=== PATIENT | male | born 1985 | race Caucasian/White ===

== ENCOUNTER 2019-11-09 13:24 | Emergency (ER) | payer SELFPAY ==
[2019-11-09 13:32] VITALS: BP 146/92; PULSE 112; TEMP 100; BMI 35.3
[2019-11-09] MEDS ORDERED: SODIUM CHLORIDE 0.9% 500 ML INFUS.BAG IV ONE ×3 (13:59→19:32)
[2019-11-09] MEDS ORDERED: ONDANSETRON 4 MG/2 ML VIAL IVPUSH ONE (13:59)
--- NOTE | 2019-11-09 14:01 | PDOC ---
History of Present Illness - General Chief Complaint: Nausea/Vomiting Stated Complaint: VOMITING Time Seen by Provider: 11/09/19 13:42 History Source: Patient Exam Limitations: No Limitations - History of Present Illness Initial Comments: 11/09/19 14:05 34-year-old male with history of opiate dependence, admits to using approximately 4 bags of heroin intranasally daily over the past 5 years, occasional marijuana use, daily Xanax use. Presents complaining of nonbloody diarrhea with nausea x 4 days. Inability to tolerate p.o. Denies chest pain, shortness of breath, vomiting, abdominal pain, recent antibiotic use, recent travel, known sick contacts, urinary complaints. Denies cocaine or alcohol use. ROS: as above PE: GENERAL: Somewhat disheveled, NAD HEAD: NCAT EYES: Pupils equal, round and reactive to light, sclera anicteric, conjunctiva clear ENT: pharynx: no erythema, Mild exudate noted, uvula midline NECK: supple, no LAD CHEST: nontender RESP: clear, no w/r/r CARDIO: rrr, no m/g/r ABD: +BS, soft, nontender, non distended BACK: no midline spinal ttp, no CVAT EXTREMITIES: Normal range of motion, no edema NEUROLOGICAL: Normal speech, normal gait SKIN: Warm, Dry 11/09/19 20:00 Is this a multiple visit Asthma Patient?: No Past History - Medical History Allergies/Adverse Reactions: Allergies Allergy/AdvReac Type Severity Reaction Status Date / Time No Known Allergies Allergy Verified 11/09/19 13:27 Home Medications: Ambulatory Orders No Home Medications 03/03/12 Amoxicillin 875 mg PO BID #20 tablet 11/09/19 Ibuprofen 600 mg PO Q6H #20 tablet 11/09/19 Anemia: No Asthma: No Cancer: No Cardiac Disorders: No CVA: No COPD: No CHF: No Dementia: No Diabetes: No GI Disorders: No Disorders: No HTN: No Hypercholesterolemia: No Kidney Stones: No Liver Disease: No Seizures: No Thyroid Disease: No - Surgical History Abdominal Surgery: No Appendectomy: No Cardiac Surgery: No Cholecystectomy: No Lung Surgery: No Neurologic Surgery: No Orthopedic Surgery: No - Reproductive History Testicular Surgery: No - Psycho-Social/Smoking History Smoking History: Current every day smoker Have you smoked in the past 12 months: Yes Number of Cigarettes Smoked Daily: 5 Information on smoking cessation initiated: Yes 'Breaking Loose' booklet given: 08/19/12 - Substance Abuse Hx (Audit-C & DAST Scrn) How often the patient has a drink containing alcohol: Never Score: In Men: 4 or > Positive; In Women: 3 or > Positive: 0 Screen Result (Pos requires Nsg. Audit-10AR): Negative In the last yr the pt used illegal drug/Rx for NonMed reason: Yes Score: Yes response is considered Positive: 1 Screen Result (Positive result requires Nsg. DAST-10): Positive *Physical Exam - Vital Signs Last Vital Signs Temp Pulse Resp BP Pulse Ox 100 F H 112 H 20 146/92 99 11/09/19 13:27 11/09/19 13:27 11/09/19 13:27 11/09/19 13:27 11/09/19 13:27 ED Treatment Course - LABORATORY CBC & Chemistry Diagram: 11/09/19 15:20 11/09/19 18:20 Medical Decision Making - Medical Decision Making 11/09/19 14:08 34-year-old male with history of opiate dependence, admits to using approxima tely 4 bags of heroin intranasally daily over the past 5 years, occasional marijuana use, daily Xanax use. Presents complaining of nonbloody diarrhea with nausea x 4 days. Inability to tolerate p.o. Denies chest pain, shortness of breath, vomiting, abdominal pain, recent antibiotic use, recent travel, known sick contacts, urinary complaints. Denies cocaine or alcohol use. IVF aniemetic labs, UA cxr, ecg covid swab 11/09/19 19:58 Initial creatinine 1.6 after 2 L creatinine improved to 1.4 Patient complains of throat pain, on exam tonsillar exudate is noted, no swelling or erythema, no lymphadenopathy Will send rapid strep IV Toradol and IVF (3rd liter) ordered re assess 11/09/19 20:34 feels better after 3L of NS, IV toradol strep neg rx for amoxicillin for tonsillitis rpt HR 86 patient not interested in detox covid test pending no vomiting in the ED return precautions discussed 11/09/19 20:39 Discharge - Discharge Information Problems reviewed: Yes Clinical Impression/Diagnosis: Tonsillitis Vomiting Qualifiers: Vomiting type: unspecified Vomiting Intractability: unspecified Nausea presence: with nausea Qualified Code(s): R11.2 - Nausea with vomiting, un specified Condition: Stable Disposition: HOME - Admission No - Additional Discharge Information Prescriptions: Amoxicillin 875 mg PO BID #20 tablet - Follow up/Referral - Patient Discharge Instructions Additional Instructions: take amoxicillin and ibuprofen as directed you are advised to go to detox for opiate and benzo abuse return to ED if worsening pain, fever, chills or any concerning symptom - Post Discharge Activity
[2019-11-09 15:29] LABS: BASO % 0.6 % (0-2.0); HEMATOCRIT 44.2 % (35.4-49); HEMOGLOBIN 15.3 GM/dL (11.7-16.9); LYMPH % 16.2 % (8-40); MCHC 34.6 g/dl (32.0-35.9); MEAN CELL VOLUME 92.6 fl (80-96); MEAN PLT VOLUME 10.5 fl (7.5-11.1); MONO % 8.5 % (3.8-10.2); NEUT % 74.7 % (42.8-82.8); PLATELET COUNT 225 K/MM3 (134-434); RBC 4.78 M/mm3 (4.00-5.60); RDW 14.3 % (11.9-15.9)
[2019-11-09 16:11] LABS: ALBUMIN 4.8 g/dl (3.4-5.0); BLOOD UREA NITROGEN 36.6 mg/dL (7-18); CALCIUM 10.2 mg/dL (8.5-10.1); CREATININE 1.6 mg/dL (0.55-1.3); TOT PROT 9.2 g/dl (6.4-8.2)
[2019-11-09 17:04] LABS: EPI CELLS >36 /uL (0-25.1); HYALINE CASTS 3 /uL (0-3.1); PH,URINE 5.5 (5.0-8.0); URINE APPEARANCE CLOUDY; URINE BACTERIA 139 /uL (0-1359); URINE BILIRUBIN NEGATIVE (NEGATIVE); URINE COLOR DK YELLOW; URINE GLUCOSE (UA) NEGATIVE (NEGATIVE); URINE KETONE TRACE (NEGATIVE); URINE LEUK ESTERASE NEGATIVE (NEGATIVE); URINE NITRITE NEGATIVE (NEGATIVE); URINE PROTEIN 1+ (NEGATIVE); URINE RBC 18 /uL (0-23.9); URINE WBC 11 /uL (0-25.8)
[2019-11-09 18:47] LABS: BLOOD UREA NITROGEN 33.4 mg/dL (7-18); CALCIUM 9.3 mg/dL (8.5-10.1); CREATININE 1.4 mg/dL (0.55-1.3); POTASSIUM 4.2 mmol/L (3.5-5.1)
[2019-11-09] MEDS ORDERED: KETOROLAC TROMETHAMINE 30 MG/1 ML VIAL IVPUSH ONE (19:32)
[2019-11-09] MEDS ORDERED: KETOROLAC TROMETHAMINE 30 MG/1 ML VIAL ONE (19:40)
--- NOTE | 2019-11-10 10:41 | EKG ---
Test Reason : Blood Pressure : / mmHG Vent. Rate : 079 BPM Atrial Rate : 079 BPM P-R Int : 164 ms QRS Dur : 086 ms QT Int : 370 ms P-R-T Axes : 070 066 057 degrees QTc Int : 424 ms NORMAL SINUS RHYTHM MODERATE VOLTAGE CRITERIA FOR LVH, MAY BE NORMAL VARIANT NONSPECIFIC ST ABNORMALITY ABNORMAL ECG NO PREVIOUS ECGS AVAILABLE Confirmed by CORNELIO FISHMAN MD ([id number]) on 11/10/2019 10:41:37 AM Referred By: Confirmed By:CORNELIO FISHMAN MD
== END 2019-11-09 21:04 | disposition home or self-care (01) ==
LOC: JER 13:24
PROC: 3E0333Z Introduction of Anti-inflammatory into Peripheral Vein, Percutaneous Approach (ICD-10-PCS; principal; 2019-11-09)
PROC: 3E033GC Introduction of Other Therapeutic Substance into Peripheral Vein, Percutaneous Approach (ICD-10-PCS; 2019-11-09)
DX: R11.2 Nausea with vomiting, unspecified (principal)
CPT/HCPCS: 36415; 71046-TC-FY; 80048; 80053; 81003; 83690; 85025; 87070; 87077; 87880; 93005; 93010; 99285-25; U0003

== ENCOUNTER 2021-06-10 10:30 | Inpatient (IN) | payer OTHER ==
[2021-06-10] MEDS ORDERED: NICOTINE 10 MG CARTRIDGE (INHALER) IH PRN (10:55)
[2021-06-10] MEDS ORDERED: MAGNESIUM CITRATE 300 ML BOTTLE PO PRN (10:55)
[2021-06-10] MEDS ORDERED: ACETAMINOPHEN 325 MG TABLET (FP) PO PRN ×2 (10:55)
[2021-06-10] MEDS ORDERED: LOPERAMIDE HCL 2 MG CAPSULE PO PRN (10:55)
[2021-06-10] MEDS ORDERED: BUPRENORPHINE HCL 150 MCG, BUPRENORPHINE HCL 75 MCG BC PRN (10:55)
[2021-06-10] MEDS ORDERED: IBUPROFEN 400 MG TABLET (FP) PO PRN (10:55)
[2021-06-10] MEDS ORDERED: MAGNESIUM HYDROX 2400MG/30ML ORAL SUSPENSION 30 ML CUP PO PRN (10:55)
[2021-06-10] MEDS ORDERED: BISMUTH SUBSALICYLATE 262 MG/15 ML BTL PO PRN (10:55)
[2021-06-10] MEDS ORDERED: cloNIDine HCL 0.1 MG TABLET PO ONE (10:55)
[2021-06-10] MEDS ORDERED: MAG HYDROX/AL HYDROX/SIMETH 30 ML UNIT-DOSE CUP PO PRN (10:55)
[2021-06-10] MEDS ORDERED: DICYCLOMINE HCL 10 MG CAPSULE PO PRN (10:55)
[2021-06-10] MEDS ORDERED: BUPRENORPHINE HCL 150 MCG, BUPRENORPHINE HCL 75 MCG BC ONE (10:55)
[2021-06-10] MEDS ORDERED: BENZOCAINE/MENTHOL (CHLORASEPTIC ) LOZENGE MM PRN (10:55)
[2021-06-10] MEDS ORDERED: BUPRENORPHINE HCL 75 MCG FILM BC ONE (11:17)
[2021-06-10] MEDS ORDERED: BUPRENORPHINE HCL 150 MCG FILM BC ONE (11:17)
[2021-06-10 11:26] VITALS: BMI 30.7
[2021-06-10] MEDS: NICOTINE 14 MG/24 HOURS TOPICAL PATCH TD SCH (12:18)
[2021-06-10] MEDS: PRENATAL VITAMINS W/ FOLIC ACID TABLET (FP) PO SCH (12:19)
[2021-06-10] MEDS: diazePAM 5 MG TABLET PO PRN ×2 (14:12→22:50)
[2021-06-10] MEDS: METHOCARBAMOL 500 MG TABLET PO PRN ×2 (14:12→22:49)
[2021-06-10] MEDS: hydrOXYzine PAMOATE 25 MG CAPSULE (FP) PO SCH ×3 (14:26→22:50)
[2021-06-10 16:58] LABS: HEMATOCRIT 40.8 % (35.4-49); HEMOGLOBIN 13.8 GM/dL (11.7-16.9); MCH 30.8 pg (25.7-33.7); MCHC 33.9 g/dl (32.0-35.9); MEAN PLT VOLUME 10.5 fl (7.5-11.1); PLATELET COUNT 188 10^3/uL (134-434); RBC 4.48 M/mm3 (4.00-5.60); RDW 13.2 % (11.9-15.9); WHITE BLOOD COUNT 11.5 K/mm3 (4.0-10.0)
[2021-06-10 17:05] LABS: ALBUMIN 4.1 g/dl (3.4-5.0); CALCIUM 9.7 mg/dL (8.5-10.1)
[2021-06-10 17:07] LABS: BLOOD UREA NITROGEN 29.9 mg/dL (7-18)
[2021-06-10 17:09] LABS: CREATININE 1.3 mg/dL (0.55-1.3)
[2021-06-10 17:11] LABS: BILIRUBIN,TOTAL 0.6 mg/dL (0.2-1); TOT PROT 7.6 g/dl (6.4-8.2)
[2021-06-10] MEDS: THIAMINE HCL 100 MG TABLET (FP) PO SCH (22:50)
[2021-06-10] MEDS: MELATONIN 5 MG TABLETS PO SCH (23:24)
[2021-06-11] MEDS ORDERED: BUPRENORPHINE HCL 150 MCG, BUPRENORPHINE HCL 75 MCG BC PRN
[2021-06-11] MEDS: BUPRENORPHINE HCL 150 MCG, BUPRENORPHINE HCL 75 MCG BC SCH ×2 (05:44→17:56)
[2021-06-11] MEDS ORDERED: BUPRENORPHINE HCL 150 MCG FILM BC ONE ×2 (05:44→17:47)
[2021-06-11] MEDS ORDERED: BUPRENORPHINE HCL 75 MCG FILM BC ONE ×2 (05:44→17:48)
[2021-06-11] MEDS: hydrOXYzine PAMOATE 25 MG CAPSULE (FP) PO SCH ×5 (05:45→22:25)
[2021-06-11] MEDS: NICOTINE 14 MG/24 HOURS TOPICAL PATCH TD SCH (10:28)
[2021-06-11] MEDS: PRENATAL VITAMINS W/ FOLIC ACID TABLET (FP) PO SCH (10:28)
[2021-06-11] MEDS: diazePAM 5 MG TABLET PO PRN ×2 (10:28→22:25)
[2021-06-11] MEDS: POTASSIUM CHLORIDE TABS 20 MEQ TABLET.ER (FP) PO SCH ×2 (10:28→22:25)
[2021-06-11] MEDS: MELATONIN 5 MG TABLETS PO SCH (22:25)
[2021-06-11] MEDS: THIAMINE HCL 100 MG TABLET (FP) PO SCH (22:25)
[2021-06-12] MEDS: hydrOXYzine PAMOATE 25 MG CAPSULE (FP) PO SCH ×5 (06:20→22:26)
[2021-06-12] MEDS: ONDANSETRON *ODT* 4 MG TABLET SL PRN ×2 (06:22→06:23)
[2021-06-12] MEDS: BUPRENORPHINE HCL 450 MCG FILM BC SCH ×2 (06:23→18:02)
[2021-06-12] MEDS ORDERED: TRIMETHOBENZAMIDE HCL 200MG/2ML INJ IM PRN (07:17)
[2021-06-12] MEDS: cloNIDine HCL 0.1 MG TABLET PO PRN (07:51)
[2021-06-12] MEDS: METHOCARBAMOL 500 MG TABLET PO PRN ×2 (10:23→22:28)
[2021-06-12] MEDS: POTASSIUM CHLORIDE TABS 20 MEQ TABLET.ER (FP) PO SCH ×2 (10:24→22:26)
[2021-06-12] MEDS: PRENATAL VITAMINS W/ FOLIC ACID TABLET (FP) PO SCH (10:24)
[2021-06-12] MEDS: NICOTINE 14 MG/24 HOURS TOPICAL PATCH TD SCH (10:24)
[2021-06-12] MEDS: diazePAM 5 MG TABLET PO PRN (10:24)
[2021-06-12 14:12] LABS: SARS-CoV-2 NAA Not Detected (Not Detected)
[2021-06-12] MEDS: THIAMINE HCL 100 MG TABLET (FP) PO SCH (22:26)
[2021-06-12] MEDS: MELATONIN 5 MG TABLETS PO SCH (22:26)
[2021-06-13] MEDS: hydrOXYzine PAMOATE 25 MG CAPSULE (FP) PO SCH ×4 (05:33→17:55)
[2021-06-13] MEDS: BUPRENORPHINE/NALOXONE 4 MG/1 MG FILM PACKET SL SCH ×2 (05:34→17:52)
[2021-06-13] MEDS: cloNIDine HCL 0.1 MG TABLET PO PRN (08:19)
[2021-06-13] MEDS: NICOTINE 14 MG/24 HOURS TOPICAL PATCH TD SCH (10:14)
[2021-06-13] MEDS: PRENATAL VITAMINS W/ FOLIC ACID TABLET (FP) PO SCH (10:14)
[2021-06-13] MEDS ORDERED: diazePAM 5 MG TABLET PO SCH (10:45)
[2021-06-13 11:28] LABS: CALCIUM 9.5 mg/dL (8.5-10.1)
[2021-06-13 11:29] LABS: ALBUMIN 4.2 g/dl (3.4-5.0); BLOOD UREA NITROGEN 15.7 mg/dL (7-18)
[2021-06-13 11:32] LABS: CREATININE 1.1 mg/dL (0.55-1.3)
[2021-06-13 11:33] LABS: BILIRUBIN,TOTAL 0.6 mg/dL (0.2-1); TOT PROT 7.7 g/dl (6.4-8.2)
[2021-06-13 17:45] VITALS: BP 113/82; PULSE 83; TEMP 98
[2021-06-13] MEDS: ONDANSETRON *ODT* 4 MG TABLET SL PRN (17:55)
[2021-06-14] MEDS ORDERED: BUPRENORPHINE/NALOXONE 8 MG/2 MG FILM PACKET SL ONE (06:00)
== END 2021-06-13 20:40 | disposition home or self-care (01) | DRG 773 ==
LOC: YASAS 10:30 → Y3N 11:02
PROVIDERS: ADMIT Allergy & Immunology; ATTEND Allergy & Immunology
PROC: HZ2ZZZZ Detoxification Services for Substance Abuse Treatment (ICD-10-PCS; principal; 2021-06-10)
DX: F11.23 Opioid dependence with withdrawal (principal); F14.20 Cocaine dependence, uncomplicated; F13.20 Sedative, hypnotic or anxiolytic dependence, uncomplicated; F17.210 Nicotine dependence, cigarettes, uncomplicated; F41.1 Generalized anxiety disorder; F32.A Depression, unspecified; R79.89 Other specified abnormal findings of blood chemistry
CPT/HCPCS: 36415; 80053; 85027; 86780; 87811; 93005; 93010; C9803-CS; J0735; Q0162; U0003; U0005

== ENCOUNTER 2021-11-05 02:10 | Emergency (ER) | payer OTHER ==
[2021-11-05 06:23] LABS: ALBUMIN 4.6 g/dl (3.4-5.0); ALK PHOS 74 U/L (45-117); BILIRUBIN,TOTAL 0.8 mg/dL (0.2-1); BLOOD UREA NITROGEN 24.7 mg/dL (7-18); CALCIUM 10.2 mg/dL (8.5-10.1); CHLORIDE 92 mmol/L (98-107); CO2 36 mmol/L (21-32); CREATININE 1.5 mg/dL (0.55-1.3); GLUCOSE,RANDOM 143 mg/dL (74-106); LIPASE 130 U/L (73-393); MAGNESIUM 2.2 mg/dL (1.8-2.4); SGOT/AST 24 U/L (15-37); SGPT/ALT 38 U/L (13-61); SODIUM 137 mmol/L (136-145); TOT PROT 8.7 g/dl (6.4-8.2)
[2021-11-05 07:05] LABS: BASO % 0.4 % (0-2.0); EOS % 0.3 % (0-4.5); HEMATOCRIT 44.9 % (35.4-49); HEMOGLOBIN 15.3 GM/dL (11.7-16.9); MCH 30.3 pg (25.7-33.7); MCHC 34.1 g/dl (32.0-35.9); MEAN CELL VOLUME 88.9 fl (80-96); MEAN PLT VOLUME 9.9 fl (7.5-11.1); MONO % 6.1 % (3.8-10.2); NEUT % 72.2 % (42.8-82.8); PLATELET COUNT 256 10^3/uL (134-434); RBC 5.05 M/mm3 (4.00-5.60); RDW 14.3 % (11.9-15.9); WHITE BLOOD COUNT 12.1 K/mm3 (4.0-10.0)
[2021-11-05 07:09] LABS: ACTIVATED PTT 33.9 SECONDS (25.2-36.5); INR 1.08 (0.83-1.09); PROTHROMBIN TIME (PATIENT) 12.4 SEC (9.7-13.0)
[2021-11-05 08:17] LABS: EPI CELLS 22 /uL (0-25.1); HYALINE CASTS 3 /uL (0-3.1); PH,URINE 6.5 (5.0-8.0); URINE APPEARANCE CLEAR; URINE BACTERIA 38 /uL (0-1359); URINE BILIRUBIN 1+ (NEGATIVE); URINE COLOR DK YELLOW; URINE GLUCOSE (UA) NEGATIVE (NEGATIVE); URINE KETONE 1+ (NEGATIVE); URINE LEUK ESTERASE NEGATIVE (NEGATIVE); URINE NITRITE NEGATIVE (NEGATIVE); URINE PROTEIN 1+ (NEGATIVE); URINE RBC 19 /uL (0-23.9); URINE WBC 8 /uL (0-25.8)
== END 2021-11-05 06:30 | disposition short-term general hospital (02) ==
LOC: JER 02:10
DX: F11.23 Opioid dependence with withdrawal (principal); R11.2 Nausea with vomiting, unspecified; E86.0 Dehydration
CPT/HCPCS: 36415; 71250-TC; 74176-TC; 80053; 81003; 83605; 83690; 83735; 84484; 85025; 85610; 85730; 87086; 93005; 93010; 99285-25

== ENCOUNTER 2021-11-05 08:46 | Inpatient (IN) | payer OTHER ==
[2021-11-05 09:26] VITALS: BMI 28.0
[2021-11-05] MEDS ORDERED: MAGNESIUM CITRATE 300 ML BOTTLE PO PRN (09:32)
[2021-11-05] MEDS ORDERED: NICOTINE 10 MG CARTRIDGE (INHALER) IH PRN (09:32)
[2021-11-05] MEDS ORDERED: BISMUTH SUBSALICYLATE 524 MG/30 ML PO PRN (09:32)
[2021-11-05] MEDS ORDERED: BUPRENORPHINE HCL 150 MCG, BUPRENORPHINE HCL 75 MCG BC PRN (09:32)
[2021-11-05] MEDS ORDERED: IBUPROFEN 600 MG TABLET (FP) PO PRN (09:32)
[2021-11-05] MEDS ORDERED: IBUPROFEN 400 MG TABLET (FP) PO PRN (09:32)
[2021-11-05] MEDS ORDERED: LOPERAMIDE HCL 2 MG CAPSULE PO PRN (09:32)
[2021-11-05] MEDS ORDERED: NALOXONE HCL (KLOXXADO) 8 MG SPRAY NS PRN (09:32)
[2021-11-05] MEDS ORDERED: DICYCLOMINE HCL 10 MG CAPSULE PO PRN (09:32)
[2021-11-05] MEDS ORDERED: BENZOCAINE/MENTHOL (CHLORASEPTIC ) LOZENGE MM PRN (09:32)
[2021-11-05] MEDS ORDERED: METHOCARBAMOL 500 MG TABLET PO PRN (09:32)
[2021-11-05] MEDS ORDERED: MAG HYDROX/AL HYDROX/SIMETH 30 ML UNIT-DOSE CUP PO PRN (09:32)
[2021-11-05] MEDS ORDERED: MAGNESIUM HYDROX 2400MG/30ML ORAL SUSPENSION 30 ML CUP PO PRN (09:32)
[2021-11-05] MEDS ORDERED: ACETAMINOPHEN 325 MG TABLET (FP) PO PRN ×2 (09:32)
[2021-11-05] MEDS ORDERED: BUPRENORPHINE HCL 150 MCG FILM BC ONE (10:12)
[2021-11-05] MEDS ORDERED: BUPRENORPHINE HCL 75 MCG FILM BC ONE (10:12)
[2021-11-05] MEDS ORDERED: BUPRENORPHINE HCL 150 MCG, BUPRENORPHINE HCL 75 MCG BC ONE (10:15)
[2021-11-05] MEDS ORDERED: cloNIDine HCL 0.1 MG TABLET PO ONE (10:15)
[2021-11-05] MEDS: hydrOXYzine PAMOATE 25 MG CAPSULE (FP) PO SCH ×4 (12:25→23:01)
[2021-11-05] MEDS: PRENATAL VITAMINS W/ FOLIC ACID TABLET (FP) PO SCH (12:26)
[2021-11-05] MEDS: ONDANSETRON *ODT* 4 MG TABLET SL PRN (12:29)
[2021-11-05] MEDS: NICOTINE 14 MG/24 HOURS TOPICAL PATCH TD SCH (12:31)
[2021-11-05] MEDS: cloNIDine HCL 0.1 MG TABLET PO PRN ×2 (18:15→23:01)
[2021-11-05] MEDS: diazePAM 5 MG TABLET PO PRN (23:01)
[2021-11-05] MEDS: MELATONIN 5 MG TABLETS PO SCH (23:01)
[2021-11-05] MEDS: THIAMINE HCL 100 MG TABLET (FP) PO SCH (23:02)
[2021-11-06] MEDS ORDERED: BUPRENORPHINE HCL 150 MCG, BUPRENORPHINE HCL 75 MCG BC PRN
[2021-11-06] MEDS: hydrOXYzine PAMOATE 25 MG CAPSULE (FP) PO SCH ×5 (05:54→22:03)
[2021-11-06] MEDS: BUPRENORPHINE HCL 150 MCG, BUPRENORPHINE HCL 75 MCG BC SCH ×2 (05:55→17:26)
[2021-11-06] MEDS: diazePAM 5 MG TABLET PO PRN ×2 (11:06→22:02)
[2021-11-06] MEDS: PRENATAL VITAMINS W/ FOLIC ACID TABLET (FP) PO SCH (11:07)
[2021-11-06] MEDS: NICOTINE 14 MG/24 HOURS TOPICAL PATCH TD SCH (11:13)
[2021-11-06] MEDS: THIAMINE HCL 100 MG TABLET (FP) PO SCH (22:03)
[2021-11-06] MEDS: MELATONIN 5 MG TABLETS PO SCH (22:03)
[2021-11-06] MEDS: cloNIDine HCL 0.1 MG TABLET PO PRN (22:03)
[2021-11-07] MEDS: BUPRENORPHINE HCL 450 MCG FILM BC SCH ×2 (06:38→18:02)
[2021-11-07] MEDS: hydrOXYzine PAMOATE 25 MG CAPSULE (FP) PO SCH ×5 (06:38→22:26)
[2021-11-07] MEDS: diazePAM 5 MG TABLET PO PRN (09:19)
[2021-11-07] MEDS: NICOTINE 14 MG/24 HOURS TOPICAL PATCH TD SCH (09:20)
[2021-11-07] MEDS: PRENATAL VITAMINS W/ FOLIC ACID TABLET (FP) PO SCH (09:20)
[2021-11-07] MEDS: THIAMINE HCL 100 MG TABLET (FP) PO SCH (22:26)
[2021-11-07] MEDS: MELATONIN 5 MG TABLETS PO SCH (22:26)
[2021-11-08] MEDS: ONDANSETRON *ODT* 4 MG TABLET SL PRN (02:36)
[2021-11-08] MEDS: hydrOXYzine PAMOATE 25 MG CAPSULE (FP) PO SCH ×2 (06:00→10:09)
[2021-11-08] MEDS ORDERED: BUPRENORPHINE/NALOXONE 4 MG/1 MG FILM PACKET SL SCH (06:00)
[2021-11-08 06:53] VITALS: TEMP 97.3
[2021-11-08 07:53] VITALS: BP 155/96; PULSE 62; RESP 18
[2021-11-08] MEDS ORDERED: TRIMETHOBENZAMIDE HCL 200MG/2ML INJ IM ONE (08:00)
[2021-11-08] MEDS: NICOTINE 14 MG/24 HOURS TOPICAL PATCH TD SCH (10:09)
[2021-11-08] MEDS: PRENATAL VITAMINS W/ FOLIC ACID TABLET (FP) PO SCH (10:09)
[2021-11-09] MEDS ORDERED: BUPRENORPHINE/NALOXONE 8 MG/2 MG FILM PACKET SL ONE (06:00)
== END 2021-11-08 08:32 | disposition left against medical advice (07) | DRG 770 ==
LOC: YASAS 08:46 → Y3N 10:17
PROVIDERS: ADMIT Allergy & Immunology; ATTEND Surgery
PROC: HZ2ZZZZ Detoxification Services for Substance Abuse Treatment (ICD-10-PCS; principal; 2021-11-05)
DX: F11.23 Opioid dependence with withdrawal (principal); F14.20 Cocaine dependence, uncomplicated; F12.20 Cannabis dependence, uncomplicated; F17.210 Nicotine dependence, cigarettes, uncomplicated; F41.1 Generalized anxiety disorder; F32.A Depression, unspecified; I10 Essential (primary) hypertension; U07.1 COVID-19
CPT/HCPCS: 36415; 86780; C9803-CS; Q0162; U0003; U0005